=== PATIENT | male | born 1975 | race African-American/Black ===

== ENCOUNTER 2019-08-19 05:11 | Inpatient (IN) ==
[2019-08-19] MEDS ORDERED: SODIUM CHLORIDE 0.9% 1,000 ML IV STA (05:57)
[2019-08-19] MEDS ORDERED: KETOROLAC 30 MG/1 ML VIAL IV STA (05:57)
[2019-08-19 06:17] LABS: Basophils # 0.1 10*3/uL (0.0-0.2); Basophils % 0.6 % (0.0-0.8); Eosinophils # 0.1 10*3/uL (0.0-0.87); Eosinophils % 1.4 % (0.00-10.9); Hematocrit 40.4 VOL% (42.0-52.0); Hemoglobin 13.3 GM/DL (14.0-18.0); Immature Granulocytes % 0.4 %; Immature Granulocytes Absolute 0.03 #; Lymphocytes # 1.8 10*3/uL (1.4-4.0); Lymphocytes % 22.4 % (21.2-54.2); Mean Corpuscular HGB Conc 32.9 GM/DL (32-36); Mean Corpuscular Volume 89.4 FL (87-102); Mean Platelet Volume 10.6 FL (9.6-12.0); Monocytes % 6.6 % (1.7-12.7); Neutrophils % 68.6 % (38.7-73.9); Platelet Count 211 T/CUMM (130-400); Red Blood Count 4.52 MC/CUMM (3.8-5.5); Red Cell Distribution Width 14.2 % (9.3-17.3); White Blood Count 7.9 T/CUMM (4-12)
[2019-08-19 06:26] LABS: PT Patient Result 10.8 SECS (9.6-12.2); Partial Thromboplastin Time 25.9 SECS (20.8-36.0)
[2019-08-19 06:29] LABS: Calcium 9.2 MG/DL (8.5-10.1); Osmolality,Calculated 274.7 MOS/KG (273-304)
[2019-08-19 06:53] LABS: Apearance,Urine CLEAR (Clear); Bilirubin,Urine Negative (Negative); Blood, Urine Negative (Negative); Glucose,Urine (UA) Negative (Negative); Ketones,Urine Negative (Negative); Mucus,Urine Occasional /LPF (Occasional); Nitrite,Urine Negative (Negative); Protein,Urine Negative; RBC,Urine 1 /HPF (0-4); Squamous Epithelial Cell,Urine Occasional /HPF (0-10); Urine Color Yellow (Yellow); Urine Urobilinogen < 2.0 EU/DL (0.2-1.0); WBC,Urine <1 /HPF (0-6)
[2019-08-19 08:46] LABS: Lymphocytes,CSF 71 %; Monocytes,CSF 4 %; Neutrophils,CSF 25 %
[2019-08-19 08:47] LABS: Appearance,CSF Clear; Red Blood Cell,CSF 20 C/CUMM; White Blood Cell,CSF 479 C/CUMM
[2019-08-19] MEDS ORDERED: cefTRIAXone 2,000 MG in SODIUM CHLORIDE 0.9% 100 ML IV ONE (10:29)
[2019-08-19] MEDS ORDERED: cefTRIAXone 1,000 MG VIAL ONE (12:09)
[2019-08-19] MEDS ORDERED: HYDROmorphone 2 MG/1 ML VIAL IV STA (12:45)
[2019-08-19] MEDS ORDERED: ONDANSETRON 4 MG/2 ML VIAL IV STA (12:45)
[2019-08-19] MEDS: SODIUM CHLORIDE 0.9% 1,000 ML IV SCH (14:56)
[2019-08-19] MEDS ORDERED: VANCOMYCIN INJ 2,500 MG in SODIUM CHLORIDE 0.9% 500 ML IV ONE (15:30)
[2019-08-19] MEDS: SODIUM CHLORIDE 0.9% IV SCH (16:02)
[2019-08-19] MEDS: ACYCLOVIR IV SCH (16:02)
[2019-08-19] MEDS: cefTRIAXone 2,000 MG in SYRINGE 1 EACH IV SCH (20:35)
[2019-08-19] MEDS: ACETAMINOPHEN 325 MG TABLET PO PRN (20:36)
[2019-08-19] MEDS: ONDANSETRON 4 MG/2 ML VIAL IV PRN (21:07)
[2019-08-20] MEDS: ACYCLOVIR IV SCH ×3 (01:04→16:55)
[2019-08-20] MEDS: SODIUM CHLORIDE 0.9% IV SCH ×3 (01:04→16:55)
[2019-08-20] MEDS: ACETAMINOPHEN 325 MG TABLET PO PRN ×2 (02:40→19:33)
[2019-08-20] MEDS: VANCOMYCIN INJ 1,500 MG in SODIUM CHLORIDE 0.9% 500 ML IV SCH ×2 (02:42→15:12)
[2019-08-20] MEDS: PANTOPRAZOLE 40 MG TABLET PO SCH (06:10)
[2019-08-20] MEDS: SODIUM CHLORIDE 0.9% 1,000 ML IV SCH (06:23)
[2019-08-20 06:27] LABS: Basophils # 0.1 10*3/uL (0.0-0.2); Basophils % 0.7 % (0.0-0.8); Eosinophils # 0.2 10*3/uL (0.0-0.87); Hematocrit 37.6 VOL% (42.0-52.0); Immature Granulocytes % 0.3 %; Immature Granulocytes Absolute 0.02 #; Lymphocytes # 1.6 10*3/uL (1.4-4.0); Lymphocytes % 21.4 % (21.2-54.2); Mean Corpuscular HGB Conc 31.9 GM/DL (32-36); Mean Corpuscular Volume 90.8 FL (87-102); Mean Platelet Volume 10.4 FL (9.6-12.0); Monocytes % 9.8 % (1.7-12.7); Neutrophils % 65.8 % (38.7-73.9); Platelet Count 185 T/CUMM (130-400); Red Blood Count 4.14 MC/CUMM (3.8-5.5); Red Cell Distribution Width 13.9 % (9.3-17.3); White Blood Count 7.6 T/CUMM (4-12)
[2019-08-20 06:51] LABS: Albumin 3.3 G/DL (3.4-5.0); Calcium 8.4 MG/DL (8.5-10.1); Osmolality,Calculated 278.4 MOS/KG (273-304); Risk Ratio 4.56; Thyroid Stimulating Hormone 0.66 uIU/ml (0.358-3.74); VLDL CHOLESTEROL 30.6 MG/DL
[2019-08-20] MEDS ORDERED: MAGNESIUM SULF RIDER 2 GM in PREMIX 1 EACH IV PRN (08:11)
[2019-08-20] MEDS ORDERED: MAGNESIUM SULF RIDER 4 GM in PREMIX 1 EACH IV PRN (08:11)
[2019-08-20] MEDS: ENOXAPARIN 40 MG/0.4 ML SYRINGE SUBCUT SCH (10:09)
[2019-08-20] MEDS: cefTRIAXone 2,000 MG in SYRINGE 1 EACH IV SCH ×2 (10:10→20:56)
[2019-08-20] MEDS: hydrALAZINE 20 MG/1 ML VIAL IV PRN (21:42)
[2019-08-21] MEDS: ACETAMINOPHEN 325 MG TABLET PO PRN ×2 (00:46→12:05)
[2019-08-21] MEDS: ACYCLOVIR IV SCH ×4 (00:46→23:35)
[2019-08-21] MEDS: SODIUM CHLORIDE 0.9% IV SCH ×4 (00:46→23:35)
[2019-08-21] MEDS: VANCOMYCIN INJ 1,500 MG in SODIUM CHLORIDE 0.9% 500 ML IV SCH ×2 (02:40→15:39)
[2019-08-21 05:25] LABS: Basophils # 0.1 10*3/uL (0.0-0.2); Basophils % 0.8 % (0.0-0.8); Eosinophils # 0.3 10*3/uL (0.0-0.87); Eosinophils % 4.6 % (0.00-10.9); Hemoglobin 12.4 GM/DL (14.0-18.0); Immature Granulocytes % 0.2 %; Immature Granulocytes Absolute 0.01 #; Lymphocytes # 1.6 10*3/uL (1.4-4.0); Lymphocytes % 25.4 % (21.2-54.2); Mean Corpuscular HGB Conc 32.6 GM/DL (32-36); Mean Corpuscular Volume 89.2 FL (87-102); Mean Platelet Volume 11.1 FL (9.6-12.0); Monocytes % 10.4 % (1.7-12.7); Neutrophils % 58.6 % (38.7-73.9); Platelet Count 179 T/CUMM (130-400); Red Blood Count 4.26 MC/CUMM (3.8-5.5); Red Cell Distribution Width 13.8 % (9.3-17.3); White Blood Count 6.2 T/CUMM (4-12)
[2019-08-21 05:56] LABS: Albumin 3.6 G/DL (3.4-5.0); Bilirubin,Total 0.5 MG/DL (0.2-1.0); Calcium 8.7 MG/DL (8.5-10.1); Osmolality,Calculated 275.5 MOS/KG (273-304); Total Protein 7.4 G/DL (6.4-8.3)
[2019-08-21] MEDS: PANTOPRAZOLE 40 MG TABLET PO SCH (06:32)
[2019-08-21] MEDS: ENOXAPARIN 40 MG/0.4 ML SYRINGE SUBCUT SCH (08:58)
[2019-08-21] MEDS: cefTRIAXone 2,000 MG in SYRINGE 1 EACH IV SCH ×2 (08:58→21:21)
[2019-08-21] MEDS: hydrALAZINE 20 MG/1 ML VIAL IV PRN (17:10)
[2019-08-21] MEDS: SODIUM CHLORIDE 0.9% 1,000 ML IV SCH (21:14)
[2019-08-22] MEDS: VANCOMYCIN INJ 1,750 MG in SODIUM CHLORIDE 0.9% 500 ML IV SCH ×2 (03:45→15:37)
[2019-08-22 06:07] LABS: Basophils # 0.1 10*3/uL (0.0-0.2); Basophils % 0.8 % (0.0-0.8); Eosinophils # 0.4 10*3/uL (0.0-0.87); Eosinophils % 5.5 % (0.00-10.9); Hematocrit 37.7 VOL% (42.0-52.0); Hemoglobin 12.3 GM/DL (14.0-18.0); Immature Granulocytes % 0.3 %; Immature Granulocytes Absolute 0.02 #; Lymphocytes # 1.6 10*3/uL (1.4-4.0); Lymphocytes % 24.7 % (21.2-54.2); Mean Corpuscular HGB Conc 32.6 GM/DL (32-36); Mean Corpuscular Volume 89.1 FL (87-102); Monocytes % 9.4 % (1.7-12.7); Neutrophils % 59.3 % (38.7-73.9); Platelet Count 195 T/CUMM (130-400); Red Blood Count 4.23 MC/CUMM (3.8-5.5); Red Cell Distribution Width 13.6 % (9.3-17.3); White Blood Count 6.3 T/CUMM (4-12)
[2019-08-22 06:26] LABS: Albumin 3.4 G/DL (3.4-5.0); Bilirubin,Total 0.6 MG/DL (0.2-1.0); Calcium 8.6 MG/DL (8.5-10.1); Osmolality,Calculated 276.5 MOS/KG (273-304); Total Protein 7.3 G/DL (6.4-8.3)
[2019-08-22] MEDS: PANTOPRAZOLE 40 MG TABLET PO SCH (06:34)
[2019-08-22] MEDS: ACYCLOVIR IV SCH ×2 (09:19→18:48)
[2019-08-22] MEDS: cefTRIAXone 2,000 MG in SYRINGE 1 EACH IV SCH ×2 (09:19→22:12)
[2019-08-22] MEDS: ENOXAPARIN 40 MG/0.4 ML SYRINGE SUBCUT SCH (09:19)
[2019-08-22] MEDS: SODIUM CHLORIDE 0.9% IV SCH ×2 (09:19→18:48)
[2019-08-23] MEDS: ACYCLOVIR IV SCH ×3 (01:03→19:32)
[2019-08-23] MEDS: SODIUM CHLORIDE 0.9% IV SCH ×3 (01:03→19:32)
[2019-08-23] MEDS: VANCOMYCIN INJ 1,750 MG in SODIUM CHLORIDE 0.9% 500 ML IV SCH ×2 (03:54→16:25)
[2019-08-23] MEDS: PANTOPRAZOLE 40 MG TABLET PO SCH (06:26)
[2019-08-23] MEDS: cefTRIAXone 2,000 MG in SYRINGE 1 EACH IV SCH ×2 (09:09→21:51)
[2019-08-23] MEDS: ENOXAPARIN 40 MG/0.4 ML SYRINGE SUBCUT SCH (09:10)
[2019-08-23] MEDS: ONDANSETRON 4 MG/2 ML VIAL IV PRN (21:50)
[2019-08-24] MEDS: VANCOMYCIN INJ 1,500 MG in SODIUM CHLORIDE 0.9% 500 ML IV SCH ×3 (00:20→16:43)
[2019-08-24] MEDS: SODIUM CHLORIDE 0.9% IV SCH ×3 (04:47→19:36)
[2019-08-24] MEDS: ACYCLOVIR IV SCH ×3 (04:47→19:36)
[2019-08-24] MEDS: PANTOPRAZOLE 40 MG TABLET PO SCH (06:23)
[2019-08-24] MEDS: cefTRIAXone 2,000 MG in SYRINGE 1 EACH IV SCH ×2 (09:19→22:08)
[2019-08-24] MEDS: ONDANSETRON 4 MG/2 ML VIAL IV PRN ×2 (09:19→22:08)
[2019-08-24] MEDS: ENOXAPARIN 40 MG/0.4 ML SYRINGE SUBCUT SCH (09:29)
[2019-08-25] MEDS: VANCOMYCIN INJ 1,500 MG in SODIUM CHLORIDE 0.9% 500 ML IV SCH ×3 (00:07→16:43)
[2019-08-25] MEDS: SODIUM CHLORIDE 0.9% IV SCH ×2 (03:19→13:00)
[2019-08-25] MEDS: ACYCLOVIR IV SCH ×2 (03:19→13:00)
[2019-08-25] MEDS: PANTOPRAZOLE 40 MG TABLET PO SCH (06:16)
[2019-08-25 09:09] LABS: Calcium 8.7 MG/DL (8.5-10.1); Osmolality,Calculated 275.7 MOS/KG (273-304)
[2019-08-25] MEDS: ENOXAPARIN 40 MG/0.4 ML SYRINGE SUBCUT SCH (10:26)
[2019-08-25] MEDS: cefTRIAXone 2,000 MG in SYRINGE 1 EACH IV SCH (10:26)
[2019-08-25] MEDS: ACETAMINOPHEN 325 MG TABLET PO PRN ×2 (10:26→16:44)
[2019-08-25] MEDS: ONDANSETRON 4 MG/2 ML VIAL IV PRN (10:31)
[2019-08-25 16:54] VITALS: BP 145/81
[2019-08-25] MEDS ORDERED: CEFUROXIME 500 MG TABLET PO SCH (21:00)
== END 2019-08-25 18:05 | disposition home or self-care (01) | DRG 99 ==
LOC: N.ED 05:11 → N.3E 11:24 → SUATTDRO 11:24 → N.3E 14:00
PROVIDERS: ADMIT Internal Medicine; ATTEND Internal Medicine